=== PATIENT | male | born 1960 | race Caucasian/White ===

== ENCOUNTER 2025-09-05 14:04 | Inpatient (IN) | payer OTHER, SELFPAY ==
[~2025-09-05 14:04] MED LIST: Iopamidol-370 76% 500 ML MDV (1 ML CHARGE) ONE
[2025-09-05] MEDS ORDERED: HYDROcodone/Acetaminophen 5/325 mg Tablet ONE ×2 (15:21→21:10)
[2025-09-05 20:27] LABS: #Basophils 0.06 10x3/uL (0.0-0.2); #Eosinophils 0.40 10x3/uL (0.0-0.7); #Monocytes 0.78 10x3/uL (0.11-0.59); #Neutrophils 4.76 10x3/uL (1.40-6.50); %Basophils 0.7 % (0.0-1.0); %Eosinophils 4.6 % (0.0-10.0); %Lymphocytes 31.3 % (21.0-51.0); %Monocytes 8.9 % (0.0-10.0); %Neutrophils 54.2 % (42.0-75.0); Hematocrit 53.7 % (42.0-52.0); Hemoglobin 16.9 g/dL (14.0-18.0); Mean Corpuscular Hemoglobin 26.7 pg (27.0-31.0); Mean Corpuscular Volume 84.7 fL (78.0-98.0); Platelet Count 248 10x3/uL (130-400); Red Blood Cell (RBC) Count 6.34 mill/uL (4.70-6.10); White Blood Cell (WBC) Count 8.78 10x3/uL (4.8-10.8)
[2025-09-05 20:47] LABS: ALT (SGPT) 572 U/L (Less than 45); AST (SGOT) 225 U/L (11-34); Albumin 4.3 g/dL (3.1-4.5); Alkaline Phosphatase 90 U/L (40-110); Anion Gap 16 mmol/L (10-20); BUN (Urea Nitrogen) 18 mg/dL (8.4-25.7); Bilirubin, Total 0.5 mg/dL (0.3-1.2); Calc. Creatinine Clearance 0 mL/min (70-130); Calcium 9.4 mg/dL (7.8-10.44); Carbon Dioxide 25 mmol/L (23-31); Chloride 103 mmol/L (98-107); Globulin 3.6 g/dL (2.4-3.5); Glucose 77 mg/dL (80-115); Potassium 4.2 mmol/L (3.5-5.1); Sodium 140 mmol/L (136-145)
[2025-09-05] MEDS ORDERED: Heparin 5,000 UNITS/ML VIAL ONE ×2 (22:12→22:13)
[2025-09-05] MEDS ORDERED: Guaifenesin DM 100-10/5 ML UDCUP PO PRN (22:22)
[2025-09-05] MEDS ORDERED: Melatonin 3 MG TAB PO PRN (22:22)
[2025-09-05] MEDS ORDERED: Ondansetron PF 4 MG/2 ML Vial IVP PRN (22:22)
[2025-09-05] MEDS ORDERED: Acetaminophen 325 MG TAB PO PRN (22:22)
[2025-09-05] MEDS ORDERED: Electrolyte Replacement Protocol 1 EACH FS SCH (22:30)
[2025-09-05 22:37] LABS: INR-International Normal Ratio 1.0; Prothrombin Time 13.7 sec (12.0-14.7)
[2025-09-05 22:38] LABS: PTT 27.5 sec (22.9-36.1)
[2025-09-05] MEDS ORDERED: PHOS-NAK 1 PKT PACK PO PRN (22:45)
[2025-09-05] MEDS ORDERED: Magnesium Sulfate In Water 4 GM in Premix 1 BAG IVPB PRN (22:45)
[2025-09-05] MEDS ORDERED: Potassium Chloride 20 MEQ in Premix 1 BAG IVPB PRN (22:45)
[2025-09-06 00:20] VITALS: BMI 23.9
[2025-09-06 04:37] LABS: INR-International Normal Ratio 1.1; Prothrombin Time 14.7 sec (12.0-14.7)
[2025-09-06 04:39] LABS: PTT 102.3 sec (22.9-36.1)
[2025-09-06 04:57] LABS: ALT (SGPT) 368 U/L (Less than 45); AST (SGOT) 107 U/L (11-34); Albumin 3.1 g/dL (3.1-4.5); Alkaline Phosphatase 68 U/L (40-110); Anion Gap 13 mmol/L (10-20); BUN (Urea Nitrogen) 18 mg/dL (8.4-25.7); Bilirubin, Total 0.5 mg/dL (0.3-1.2); Calc. Creatinine Clearance 69 mL/min (70-130); Calcium 8.4 mg/dL (7.8-10.44); Carbon Dioxide 25 mmol/L (23-31); Chloride 105 mmol/L (98-107); Globulin 2.5 g/dL (2.4-3.5); Glucose 113 mg/dL (80-115); Magnesium 1.7 mg/dL (1.6-2.6); Potassium 3.5 mmol/L (3.5-5.1); Sodium 139 mmol/L (136-145)
[2025-09-06 05:49] LABS: #Basophils 0.05 10x3/uL (0.0-0.2); #Eosinophils 0.38 10x3/uL (0.0-0.7); #Monocytes 0.91 10x3/uL (0.11-0.59); #Neutrophils 4.02 10x3/uL (1.40-6.50); %Basophils 0.6 % (0.0-1.0); %Eosinophils 4.8 % (0.0-10.0); %Lymphocytes 31.5 % (21.0-51.0); %Monocytes 11.6 % (0.0-10.0); %Neutrophils 51.1 % (42.0-75.0); Hematocrit 44.6 % (42.0-52.0); Hemoglobin 14.4 g/dL (14.0-18.0); Mean Corpuscular Hemoglobin 27.1 pg (27.0-31.0); Mean Corpuscular Volume 83.8 fL (78.0-98.0); Platelet Count 245 10x3/uL (130-400); Red Blood Cell (RBC) Count 5.32 mill/uL (4.70-6.10); White Blood Cell (WBC) Count 7.87 10x3/uL (4.8-10.8)
[2025-09-06] MEDS: Aspirin 81 mg Enteric Coated Tablet PO SCH (09:47)
[2025-09-06] MEDS: Famotidine 20 MG TAB PO SCH (09:49)
[2025-09-06] MEDS ORDERED: Clindamycin/D5W 900 MG in Premix 1 BAG IVPB SCH (11:00)
[2025-09-06] MEDS ORDERED: Rocuronium Bromide 10 MG/ML (10ML VIAL) ONE ×3 (11:13→12:46)
[2025-09-06] MEDS ORDERED: PROPOFOL 20 ML ONE ×2 (11:13→11:56)
[2025-09-06] MEDS ORDERED: fentaNYL PF 100 MCG/2 ML SYRINGE ONE ×2 (11:13→11:56)
[2025-09-06] MEDS ORDERED: Lidocaine 1% PF 5 ML VIAL ONE (11:13)
[2025-09-06] MEDS ORDERED: Ondansetron PF 4 MG/2 ML Vial ONE ×2 (11:21→12:53)
[2025-09-06] MEDS ORDERED: Heparin 5,000 UNITS/ML VIAL ONE (11:32)
[2025-09-06] MEDS ORDERED: Ketamine In 0.9 % NaCl 50 MG/5 ML SYRINGE ONE (12:13)
[2025-09-06] MEDS ORDERED: PROPOFOL 200 MG/20 ML VIAL ONE (12:46)
[2025-09-06] MEDS ORDERED: PHENYLEPHRINE-NS 100 MCG/ML 10 ML SYRINGE ONE (12:46)
[2025-09-06] MEDS ORDERED: SUGAMMADEX SODIUM 200 MG/2 ML VIAL ONE (13:07)
[2025-09-06 16:39] LABS: INR-International Normal Ratio 1.1; Prothrombin Time 13.9 sec (12.0-14.7)
[2025-09-06 16:41] LABS: PTT 82.9 sec (22.9-36.1)
[2025-09-06 16:42] LABS: D-Dimer Test 2.3 mcg/mL (0.27-0.43)
[2025-09-06] MEDS: Rosuvastatin 20 MG TAB PO SCH (20:50)
[2025-09-06 23:41] LABS: Hematocrit 45.8 % (42.0-52.0); Hemoglobin 14.7 g/dL (14.0-18.0); Platelet Count 226 10x3/uL (130-400)
[2025-09-07 03:54] LABS: #Basophils Less than 0.03 10x3/uL (0.0-0.2); #Eosinophils Less than 0.03 10x3/uL (0.0-0.7); #Monocytes 0.79 10x3/uL (0.11-0.59); #Neutrophils 9.91 10x3/uL (1.40-6.50); %Basophils 0.1 % (0.0-1.0); %Eosinophils 0.0 % (0.0-10.0); %Lymphocytes 9.7 % (21.0-51.0); %Monocytes 6.6 % (0.0-10.0); %Neutrophils 83.2 % (42.0-75.0); Hematocrit 43.9 % (42.0-52.0); Hemoglobin 13.7 g/dL (14.0-18.0); Mean Corpuscular Hemoglobin 26.3 pg (27.0-31.0); Mean Corpuscular Volume 84.3 fL (78.0-98.0); Platelet Count 230 10x3/uL (130-400); Red Blood Cell (RBC) Count 5.21 mill/uL (4.70-6.10); White Blood Cell (WBC) Count 11.92 10x3/uL (4.8-10.8)
[2025-09-07 04:50] LABS: ALT (SGPT) 305 U/L (Less than 45); AST (SGOT) 78 U/L (11-34); Albumin 3.1 g/dL (3.1-4.5); Alkaline Phosphatase 69 U/L (40-110); Anion Gap 10 mmol/L (10-20); BUN (Urea Nitrogen) 14 mg/dL (8.4-25.7); Bilirubin, Total 0.6 mg/dL (0.3-1.2); Calc. Creatinine Clearance 75 mL/min (70-130); Calcium 8.5 mg/dL (7.8-10.44); Carbon Dioxide 22 mmol/L (23-31); Cardiac Risk 3.7 (Less than 4.5); Chloride 107 mmol/L (98-107); Cholesterol 183 mg/dl (< 200 Desired); Globulin 2.7 g/dL (2.4-3.5); Glucose 127 mg/dL (80-115); HDL Cholesterol 49 mg/dL (>60 Neg Risk); LDL Cholesterol, Calculated 124 mg/dL; Potassium 3.9 mmol/L (3.5-5.1); Sodium 135 mmol/L (136-145); Triglycerides 51 mg/dL (Less than 150)
[2025-09-07] MEDS: ALPRAZolam 0.25 MG TAB PO PRN (09:01)
[2025-09-08 04:44] LABS: #Basophils 0.04 10x3/uL (0.0-0.2); #Eosinophils 0.17 10x3/uL (0.0-0.7); #Monocytes 1.13 10x3/uL (0.11-0.59); #Neutrophils 6.69 10x3/uL (1.40-6.50); %Basophils 0.4 % (0.0-1.0); %Eosinophils 1.6 % (0.0-10.0); %Lymphocytes 22.5 % (21.0-51.0); %Monocytes 10.8 % (0.0-10.0); %Neutrophils 64.2 % (42.0-75.0); Hematocrit 42.8 % (42.0-52.0); Hemoglobin 13.9 g/dL (14.0-18.0); Mean Corpuscular Hemoglobin 26.8 pg (27.0-31.0); Mean Corpuscular Volume 82.6 fL (78.0-98.0); Platelet Count 220 10x3/uL (130-400); Red Blood Cell (RBC) Count 5.18 mill/uL (4.70-6.10); White Blood Cell (WBC) Count 10.42 10x3/uL (4.8-10.8)
[2025-09-08 05:15] LABS: ALT (SGPT) 232 U/L (Less than 45); AST (SGOT) 46 U/L (11-34); Albumin 3.1 g/dL (3.1-4.5); Alkaline Phosphatase 66 U/L (40-110); Anion Gap 13 mmol/L (10-20); BUN (Urea Nitrogen) 13 mg/dL (8.4-25.7); Bilirubin, Total 0.5 mg/dL (0.3-1.2); Calc. Creatinine Clearance 79 mL/min (70-130); Calcium 8.5 mg/dL (7.8-10.44); Carbon Dioxide 24 mmol/L (23-31); Chloride 105 mmol/L (98-107); Globulin 2.8 g/dL (2.4-3.5); Glucose 84 mg/dL (80-115); Potassium 3.8 mmol/L (3.5-5.1); Sodium 138 mmol/L (136-145)
[2025-09-08] MEDS: Heparin 10,000 UNITS/ 10 ML VIAL SLOW IVP SCH (08:38)
[2025-09-08 22:58] LABS: Hematocrit 44.6 % (42.0-52.0); Hemoglobin 14.3 g/dL (14.0-18.0); Platelet Count 218 10x3/uL (130-400)
[2025-09-09] MEDS: Apixaban 5 MG TAB PO SCH ×2 (10:16→20:13)
[2025-09-09 13:39] LABS: EliA APS New Method **** NEW METHOD ****
[2025-09-10 11:30] VITALS: BP 135/73; TEMP 99.5
== END 2025-09-10 11:54 | disposition home or self-care (01) | DRG 271 ==
LOC: ERS 14:04 → PCU 22:22
PROVIDERS: ADMIT Internal Medicine; ATTEND Family Medicine
PROC: 04CK0ZZ Extirpation of Matter from Right Femoral Artery, Open Approach (ICD-10-PCS; principal; 2025-09-06)
PROC: 04CC0ZZ Extirpation of Matter from Right Common Iliac Artery, Open Approach (ICD-10-PCS; 2025-09-06)
DX: I74.3 Embolism and thrombosis of arteries of the lower extremities (principal); I50.20 Unspecified systolic (congestive) heart failure; N17.9 Acute kidney failure, unspecified; I25.10 Atherosclerotic heart disease of native coronary artery without angina pectoris; N40.1 Benign prostatic hyperplasia with lower urinary tract symptoms; I48.91 Unspecified atrial fibrillation; D45 Polycythemia vera; N18.30 Chronic kidney disease, stage 3 unspecified; R74.01 Elevation of levels of liver transaminase levels; I70.221 Atherosclerosis of native arteries of extremities with rest pain, right leg; T38.805A Adverse effect of unspecified hormones and synthetic substitutes, initial encounter; Z95.1 Presence of aortocoronary bypass graft; Z88.0 Allergy status to penicillin; Z98.890 Other specified postprocedural states; Z79.82 Long term (current) use of aspirin; Z79.899 Other long term (current) drug therapy
CPT/HCPCS: 36415; 75635; 80053; 80061; 81240; 81241; 83090; 83735; 83880; 84100; 84484; 85014; 85018; 85025; 85049; 85300; 85303; 85306; 85307; 85379; 85598; 85610; 85730; 86147; 93005; 93306; 93923; 96374; 96375; J0169; J0665; J1100; J1642; J1644; J2250; J2405; J2704; J3490; Q9967